=== PATIENT | male | born 1980 | race Two or more races ===

== ENCOUNTER 2024-01-12 16:36 | Emergency (ER) | payer OTHER ==
[~2024-01-12] VITALS: Ht 177.8 cm; Wt 108.4 kg
[2024-01-12 18:16] VITALS: BP 134/87; PULSE 80; RESP 18; TEMP 98.2; O2SAT 95
[2024-01-12] MEDS: DexAMETHasone SOD PHOS 10MG/1ML VIAL INJ IM ONE (18:36)
[2024-01-12] MEDS: KETOROLAC TROMETH 60MG/2ML VIAL IM ONE (18:37)
== END 2024-01-12 19:09 | disposition home or self-care (01) ==
LOC: ER 16:36
DX: B34.9 Viral infection, unspecified (principal)
CPT/HCPCS: 71046; 96372; 99284; J1100; J1885